=== PATIENT | male | born 1975 | race African-American/Black ===

== ENCOUNTER 2018-09-06 06:36 | Observation (INO) | payer OTHER ==
[2018-09-02 10:58] LABS: BASOPHILS % 0.4 % (0.0-1.0); EOSINOPHILS # (AUTO) 0.1 (0.0-0.4); EOSINOPHILS % 2.5 % (0.0-6.0); HEMATOCRIT 47.5 % (38.2-49.6); HEMOGLOBIN 15.2 g/dL (14.0-18.0); LYMPHOCYTES # (AUTO) 1.8 (1.0-3.2); LYMPHOCYTES % 37.6 % (18.0-39.1); MEAN CORPUSCULAR HEMOGLOBIN 25.7 pg (28-32); MEAN CORPUSCULAR VOLUME 80.2 fL (81-99); MONOCYTES # (AUTO) 0.5 (0.2-0.8); MONOCYTES % 9.6 % (4.4-11.3); NEUTROPHILS # (AUTO) 2.4 (2.1-6.9); NEUTROPHILS % 49.7 % (38.7-80.0); PLATELET COUNT 220 x10e3/uL (140-360); RED BLOOD COUNT 5.92 x10e6/uL (4.3-5.7); RED CELL DISTRIBUTION WIDTH 14.6 % (11.7-14.4)
[2018-09-02 11:32] LABS: ANION GAP 11.5 mmol/L (8-16); BLOOD UREA NITROGEN 12 mg/dL (7-26); BUN/CREATININE RATIO 12 (6-25); CALCIUM 9.6 mg/dL (8.4-10.2); CARBON DIOXIDE 27 mmol/L (22-29); CHLORIDE 103 mmol/L (98-107); CREATININE, SERUM 0.98 mg/dL (0.72-1.25); EST GLOMERULAR FILTRATION RATE > 60 ML/MIN (60-); GLUCOSE 170 mg/dL (74-118); POTASSIUM 4.5 mmol/L (3.5-5.1); SODIUM 137 mmol/L (136-145)
[~2018-09-06] VITALS: Ht 193 cm; Wt 117.9 kg
[~2018-09-06 06:36] MED LIST: GLIMEPIRIDE4 MG; IRBESARTAN75 MG; JANUMET XR 1001 EACH; LOVASTATIN40 MG; MONTELUKAST SOD10 MG PO; NEXIUM20 MG; OZEMPIC; TESTOSTERO200 MG/1 M; TRESIBA
[2018-09-06] MEDS ORDERED: BUPIVACAINE 0.25%/EPI 30ML SDV INJ ONE (07:29)
[2018-09-06] MEDS ORDERED: CLINDAMYCIN 600MG / 50ML 50 ML IV ONE (08:46)
[2018-09-06] MEDS ORDERED: ACETAMINOPHEN 1000 MG/100 ML IV PRN (11:00)
[2018-09-06] MEDS ORDERED: NALOXONE HCL INJ 0.4 MG/ML AMP IV PRN (11:00)
[2018-09-06] MEDS ORDERED: HYDROCODONE/APAP 7.5MG-325MG 1 EA TAB PO PRN (11:00)
[2018-09-06] MEDS ORDERED: ONDANSETRON HCL INJ 2MG/ML 2ML 2 MG/ML VIAL IV PRN (11:00)
[2018-09-06] MEDS: INSULIN REGULAR, HUMAN 100 UNIT/1 ML 3ML VIAL SQ SCH ×3 (12:00→23:53)
[2018-09-06 12:45] VITALS: BP 131/87
[2018-09-06 13:12] VITALS: BP 110/67
[2018-09-06 13:15] VITALS: BP 110/67
[2018-09-06] MEDS: HYDROMORPHONE 0.2MG/ML-SOD CHL 30ML PCA SYRINGE IV PRN (14:52)
[2018-09-06] MEDS: SODIUM CHLORIDE 0.9% 1000ML 1,000 ML IV SCH ×2 (15:02→20:55)
--- NOTE | 2018-09-06 16:22 | Operative Report ---
DATE OF PROCEDURE: 09/06/2018 SURGEON: Tawanda Bell MD PREOPERATIVE DIAGNOSIS: Incarcerated ventral and umbilical hernias. POSTOPERATIVE DIAGNOSIS: Incarcerated ventral and umbilical hernias. OPERATION PERFORMED: Repair of incarcerated ventral and umbilical hernias with double mesh technique. STATISTICAL ASSISTANT: ALMITA Ramirez. ANESTHESIA: General. COMPLICATIONS: None. ESTIMATED BLOOD LOSS: Minimal. PROCEDURE IN DETAIL: With the patient lying in bed in the supine position under good general endotracheal anesthesia, the abdomen was prepped with Betadine solution and draped in the usual manner. An upper midline incision was made above the umbilicus. This was carried down through the subcutaneous tissue and immediately a large hernia sac with incarcerated mesentery was identified. The hernia sac was then dissected all the way around with normal fascia. The umbilicus was then similarly dissected all the way around and detached from the hernia sac. Both hernia sacs were then exposed. At this point, the umbilical hernia was then opened and all the contents were reduced back to the intraabdominal cavity and the ventral hernia contents were then ligated with 2-0 Vicryl and resected. We then had access to the two openings. It quickly became evident that the patient had some weakness all the way around and we decided that the best way to do it would be to put the mesh from the inside, but also cover the entire midline to prevent recurrence above the ventral hernia. The fascia was then cleared all the way around. Once this was done, a large Ventralex patch was then placed through the ventral hernia and deployed without any difficulty and umbilical and ventral hernias were then closed transversely using interrupted sutures of 0 Ethibond anchoring the mesh on the way out. This gave us a satisfactory closure. The whole area was then covered with Ultrapro mesh on an onlay style and the mesh was sutured all the way around using interrupted sutures of 0 Ethibond and 0 Vicryl. This gave us a satisfactory repair with no tension. The whole area was thoroughly irrigated. Perfect hemostasis was ascertained. The layers were infiltrated on the way out with solution of 0.25% Marcaine. The umbilicus was then tacked back down to the midline fascia with 3-0 and 2-0 Vicryl and the skin was closed with clips. A dressing was applied. The sponge, lap, and needle count was correct. The patient tolerated the procedure well and returned to the recovery room in stable condition. MD REGIS Rivas/CIARAN /[id number]
[2018-09-06] MEDS: CLINDAMYCIN 600MG / 50ML 50 ML IV SCH ×2 (16:32→21:27)
[2018-09-06 17:08] VITALS: BP 137/72
[2018-09-06] MEDS ORDERED: MIDAZOLAM HCL 2 MG/2 ML VIAL ONE (18:29)
[2018-09-06] MEDS ORDERED: ACETAMINOPHEN 1000 MG/100 ML IV ONE (18:29)
[2018-09-06] MEDS ORDERED: DEXAMETHASONE SOD PHOS INJ 4 MG/ML VIAL ONE (18:29)
[2018-09-06] MEDS ORDERED: PROPOFOL IV EMULSION 10 MG/ML 20 ML VIAL ONE (18:29)
[2018-09-06] MEDS ORDERED: NEOSTIGMINE 5 MG/5ML SYR ONE (18:29)
[2018-09-06] MEDS ORDERED: ONDANSETRON HCL INJ 2MG/ML 2ML 2 MG/ML VIAL ONE (18:29)
[2018-09-06] MEDS ORDERED: KETOROLAC TROMETHAMINE 30 MG/ML VIAL ONE (18:29)
[2018-09-06] MEDS ORDERED: FENTANYL CITRATE/PF 100MCG/2 ML INJ ONE (18:29)
[2018-09-06] MEDS ORDERED: LIDOCAINE HCL 2% LOCAL INJ 5 ML SDV VIAL INJ ONE (18:29)
[2018-09-06] MEDS ORDERED: SEVOFLURANE INHAL SOLN 250 ML PEN BTL ONE (18:29)
[2018-09-06] MEDS ORDERED: GLYCOPYRROLATE INJ 1MG/ 5 ML SYR ONE (18:29)
[2018-09-06] MEDS ORDERED: ROCURONIUM BROMIDE 10 MG/ML 5ML VIAL ONE (18:29)
[2018-09-06 20:00] VITALS: BP 129/75
[2018-09-06 21:49] VITALS: BP 129/75
[2018-09-07] VITALS: BP 124/72
[2018-09-07] MEDS: HYDROMORPHONE 0.2MG/ML-SOD CHL 30ML PCA SYRINGE IV PRN (02:05)
[2018-09-07 04:00] VITALS: BP 136/84
[2018-09-07] MEDS: INSULIN REGULAR, HUMAN 100 UNIT/1 ML 3ML VIAL SQ SCH ×2 (05:27→12:00)
[2018-09-07] MEDS: SODIUM CHLORIDE 0.9% 1000ML 1,000 ML IV SCH ×2 (06:55→09:33)
--- NOTE | 2018-09-07 07:00 | NUR ---
PT REPORT AT BEDSIDE. PT PAIN AT 3/10 FIELD ATTENDANT AT SIDE FOR PAIN CONTROLL
[2018-09-07 08:00] VITALS: BP 137/77
[2018-09-07] MEDS ORDERED: PROMETHAZINE 12.5MG/ NACL 0.9% 50 ML ONE (08:28)
[2018-09-07] MEDS ORDERED: PROMETHAZINE 12.5MG/ NACL 0.9% 12.5 MG/50 ML BAG IV PRN (08:45)
[2018-09-07 09:32] VITALS: BP 131/77
[2018-09-07] MEDS ORDERED: HYDROMORPHONE 1MG/1ML INJ IV PRN (10:00)
--- NOTE | 2018-09-07 11:15 | NUR ---
PT CREATIVE SERVICES WRITER DC. PAIN REMAINS A 3/10. PT TOLERATES ABOUT HALF OF BREAKFAST.
[2018-09-07 12:00] VITALS: BP 150/90
--- NOTE | 2018-09-07 14:50 | NUR ---
Visit made by the Spiritual Care Department Pastoral Visitor, Evlia Galvez. PV provided pastoral presence, prayer, hospitality, and supportive listening. Pastoral Visitor informed pt/family of the scope of [employer] and availability. JUANITO GASTON Independent Beauty Consultant Spiritual Care Department O: [phone] Pager: [phone] ([phone] number calling from)
--- NOTE | 2018-09-07 15:39 | NUR ---
PT CO ABD PAIN 10/25; MEDICATED ORDERED.
[2018-09-07] MEDS ORDERED: HYDROMORPHONE 2MG/ML 2 MG/ML ML ONE (15:42)
[2018-09-07] MEDS ORDERED: HYDROMORPHONE 2MG/ML 2 MG/ML ML IV PRN (15:45)
--- NOTE | 2018-09-07 16:40 | NUR ---
PT UP AMBULATING. NO CO OF PAIN AT THIS TIME
--- NOTE | 2018-09-07 17:25 | NUR ---
DR. BO TO SEE PT. PT WILL BE DC LATER.
[2018-09-07] MEDS ORDERED: NORCO 10-325 T1 EACH PO (17:54)
[2018-09-07 18:01] VITALS: BP 166/88
--- NOTE | 2018-09-07 18:20 | NUR ---
PT IV DIC. DISCHARGE INSTRUCTION ALONG WITH PRESCRIPTION GIVEN. PT ACCOMPANIED OUT BY STAFF VIA WC.
== END 2018-09-07 18:27 | disposition home or self-care (01) ==
LOC: OR 06:36 → PACU V 10:58 → MED/SURG 12:50
PROVIDERS: ADMIT Surgery; ATTEND Surgery
DX: K43.6 Other and unspecified ventral hernia with obstruction, without gangrene (principal); K42.9 Umbilical hernia without obstruction or gangrene; E11.9 Type 2 diabetes mellitus without complications; I10 Essential (primary) hypertension; Z01.810 Encounter for preprocedural cardiovascular examination; Z01.812 Encounter for preprocedural laboratory examination; Z88.1 Allergy status to other antibiotic agents; Z88.0 Allergy status to penicillin
CPT/HCPCS: 36415 ×3; 49561; 49568; 80048; 82948 ×2; 85025; 88304; 93005; C1781 ×2; G0378 ×2; J0131; J1100; J1170; J1885; J2001; J2250; J2405 ×2; J2550; J2704; J3490; J7030 ×2